=== PATIENT | female | born 1940 | race African-American/Black ===

== ENCOUNTER 2024-11-03 13:47 | Inpatient (IN) | payer OTHER ==
[~2024-11-03] VITALS: Ht 165.1 cm; Wt 49.9 kg
[2024-11-03 15:11] LABS: BASOPHILS % 0.4 % (0.0-2.0); EOSINOPHILS % 0.1 % (0.0-5.0); HEMATOCRIT. 30.9 % (36.0-48.0); HEMOGLOBIN. 9.9 g/dL (12.0-16.0); LYMPHOCYTES % 6.8 % (20.0-50.0); MEAN CORPUSCULAR HEMOGLOBIN 26.3 pg (28.0-32.0); MEAN CORPUSCULAR HGB CONC 32.1 g/dL (31.0-37.0); MEAN PLATELET VOLUME 7.9 fl (7.4-10.4); MONOCYTES % 11.1 % (2.0-8.0); NEUTROPHILS % 81.6 % (40.0-76.0); PLATELET 264 x1000/uL (130-400); RED BLOOD CELL COUNT 3.77 mill/uL (4.2-5.4); WHITE BLOOD COUNT 10.1 x1000/uL (4.5-11.0)
[2024-11-03 15:18] LABS: CHLORIDE 107 mEq/L (98-107); POTASSIUM 4.2 mEq/L (3.5-5.1); SODIUM 142 mEq/L (136-145)
[2024-11-03 15:19] LABS: CALCIUM 9.8 mg/dL (8.7-10.4); CARBON DIOXIDE 26 mEq/L (21-32)
[2024-11-03 15:21] LABS: DIFFERENTIAL COMMENT 1
[2024-11-03 15:23] LABS: PROTHROMBIN TIME 11.3 sec (9.6-11.0)
[2024-11-03 15:24] LABS: CREATININE 0.7 mg/dL (0.6-1.0); GLUCOSE 74 mg/dL (70-105); UREA NITROGEN BLOOD 33 mg/dL (9-23)
[2024-11-03 15:25] LABS: TROPONIN I HIGH SENSITIVITY 28 ng/L (3.0-34)
[2024-11-03] MEDS ORDERED: DOCUSATE SODIUM 100MG CAPSULE PO PRN (19:00)
[2024-11-03] MEDS ORDERED: ONDANSETRON HCL 4MG/2ML INJ IV PRN (19:00)
[2024-11-03] MEDS ORDERED: MAGNESIUM/ALUMINUM HYDROXIDE/SIMETHICONE 30ML UDC PO PRN (19:00)
[2024-11-03] MEDS ORDERED: NITROGLYCERIN 0.4MG TABLET SL SL PRN (19:00)
[2024-11-03] MEDS ORDERED: IPRATROPIUM/ALBUTEROL 0.5-3(2.5)MG/3ML NEB NEB PRN (19:00)
[2024-11-03] MEDS ORDERED: DEXTROSE 50% WATER 50ML SYRINGE IV PRN (19:00)
[2024-11-03] MEDS ORDERED: KETOROLAC 15MG/ML VIAL IV PRN (19:00)
[2024-11-03] MEDS ORDERED: ACETAMINOPHEN 325MG TABLET PO PRN ×2 (19:00)
[2024-11-03 20:07] LABS: IRON 25 ug/dL (50-170)
[2024-11-03 20:08] LABS: TRIGLYCERIDE 70 mg/dL (0-150)
[2024-11-03 20:09] LABS: LDL CHOLESTEROL 60 mg/dL (5-100)
[2024-11-03 20:10] LABS: ALANINE AMINOTRANSFERASE 12 IU/L (10-49); ALBUMIN 3.9 g/dL (3.2-4.8); ASPARTATE AMINOTRANSFERASE 20 IU/L (<34); BILIRUBIN DIRECT 0.2 mg/dL (<=3.0); BILIRUBIN TOTAL 0.6 mg/dL (0.1-1.0); CHOLESTEROL 122 mg/dL (<200); HDL CHOLESTEROL 45 mg/dL (>65); PROTEIN TOTAL 7.3 g/dL (6.0-8.3); TOTAL IRON BINDING CAPACITY 170 ug/dl (250-425)
[2024-11-03 20:12] LABS: T4 FREE 7.68 ng/dL (0.89-1.76); THYROID STIMULATING HORMONE < 0.10 uIU/mL (0.55-4.78)
[2024-11-03 20:13] LABS: FOLIC ACID (FOLATE) SERUM 9.32 ng/mL (>5.38); VITAMIN B12 SERUM 723 pg/mL (211-911)
[2024-11-03 20:40] VITALS: BP 162/55; PULSE 115; RESP 24; TEMP 36.72516; TEMP 36.7516; O2SAT 98
[2024-11-03] MEDS: BLOOD SUGAR DIAGNOSTIC STRIP TEST SCH (21:00)
[2024-11-03] MEDS ORDERED: ZOLPIDEM TARTRATE 5MG TABLET PO PRN (21:00)
[2024-11-03] MEDS: INSULIN LISPRO 100 UNITS/ML SUBCUT SCH (21:00)
[2024-11-03] MEDS: NITROGLYCERIN OINT 1GM/INCH UDPKT TD SCH (22:31)
[2024-11-03] MEDS: SPIRONOLACTONE 25MG TABLET PO SCH (22:31)
[2024-11-03] MEDS: LOSARTAN 50 MG TABLET PO SCH (22:31)
[2024-11-03] MEDS: FAMOTIDINE 20MG TABLET PO SCH (22:31)
[2024-11-03] MEDS: ENOXAPARIN 40MG/0.4ML SYR SUBCUT SCH (22:33)
[2024-11-03] MEDS: METHIMAZOLE 5MG TABLET PO SCH (22:36)
[2024-11-03 22:41] LABS: CREATINE KINASE MB FRACTION 3.1 ng/mL (0.5-3.6)
[2024-11-04] VITALS: BP 147/55; PULSE 107; RESP 22; TEMP 36.61404; O2SAT 99
[2024-11-04] MEDS: FUROSEMIDE 40MG/4ML VIAL IVP SCH (00:02)
[2024-11-04] MEDS: PROPRANOLOL HCL 10MG TABLET PO SCH (00:02)
[2024-11-04 01:32] LABS: CLARITY URINE CLEAR (CLEAR); COLOR URINE YELLOW (YELLOW); GLUCOSE URINE NEGATIVE (NEGATIVE); KETONES URINE TRACE (NEGATIVE); LEUKOCYTE ESTERASE URINE NEGATIVE (NEGATIVE); NITRITE URINE NEGATIVE (NEGATIVE); OCCULT BLOOD URINE NEGATIVE (NEGATIVE); PROTEIN URINE TRACE (NEGATIVE); SPECIFIC GRAVITY URINE 1.014 (1.005-1.030); UROBILINOGEN URINE 0.2 E.U./dL (0.2-1.0)
[2024-11-04 01:42] LABS: *AMPHETAMINES SCREEN URINE NEGATIVE (NEGATIVE); *BARBITURATES SCREEN URINE NEGATIVE (NEGATIVE); *BENZODIAZEPINES SCREEN URINE NEGATIVE (NEGATIVE)
[2024-11-04 01:43] LABS: *COCAINE SCREEN URINE NEGATIVE (NEGATIVE); CANNABINOID URINE SCREEN NEGATIVE (NEGATIVE); ECSTASY MDMA SCREEN URINE NEGATIVE (NEGATIVE); METHADONE URINE SCREEN NEGATIVE (NEGATIVE); OPIATES URINE SCREEN NEGATIVE (NEGATIVE); PHENCYCLIDINE URINE SCREEN NEGATIVE (NEGATIVE)
[2024-11-04 03:08] LABS: SQUAMOUS EPITHELIAL CELL URINE 1+ /lpf (RARE/1+)
[2024-11-04 03:14] LABS: YEAST URINE 1+
[2024-11-04 03:15] LABS: BACTERIA URINE TRACE; RBC URINE 0-2 /hpf (0-2); WBC URINE 0-2 /hpf (0-2)
[2024-11-04 04:21] VITALS: BP 154/64; PULSE 98; RESP 21; TEMP 36.55848; O2SAT 98
[2024-11-04 08:00] VITALS: BP 157/61; PULSE 105; RESP 29; TEMP 36.72516; O2SAT 96
[2024-11-04 08:08] LABS: CARBON DIOXIDE 26 mEq/L (21-32); CHLORIDE 103 mEq/L (98-107); POTASSIUM 4.5 mEq/L (3.5-5.1); SODIUM 139 mEq/L (136-145)
[2024-11-04 08:13] LABS: CREATININE 0.8 mg/dL (0.6-1.0); GLUCOSE 141 mg/dL (70-105)
[2024-11-04 08:14] LABS: UREA NITROGEN BLOOD 29 mg/dL (9-23)
[2024-11-04 08:15] LABS: ALANINE AMINOTRANSFERASE 15 IU/L (10-49); ALBUMIN 3.7 g/dL (3.2-4.8); ASPARTATE AMINOTRANSFERASE 25 IU/L (<34); CREATINE KINASE MB FRACTION 2.9 ng/mL (0.5-3.6)
[2024-11-04 08:16] LABS: BILIRUBIN TOTAL 0.9 mg/dL (0.1-1.0); PHOSPHORUS 3.4 mg/dL (2.5-4.9); PROTEIN TOTAL 6.9 g/dL (6.0-8.3)
[2024-11-04] MEDS: ASPIRIN 81MG EC TABLET PO SCH (08:55)
[2024-11-04 09:01] LABS: BASOPHILS % 0.7 % (0.0-2.0); EOSINOPHILS % 0.4 % (0.0-5.0); HEMATOCRIT. 30.5 % (36.0-48.0); HEMOGLOBIN. 9.7 g/dL (12.0-16.0); LYMPHOCYTES % 16.6 % (20.0-50.0); MEAN CORPUSCULAR HEMOGLOBIN 26.2 pg (28.0-32.0); MEAN CORPUSCULAR VOLUME 81.9 fL (81.0-99.0); MEAN PLATELET VOLUME 8.2 fl (7.4-10.4); MONOCYTES % 12.4 % (2.0-8.0); NEUTROPHILS % 69.9 % (40.0-76.0); PLATELET 256 x1000/uL (130-400); RED BLOOD CELL COUNT 3.72 mill/uL (4.2-5.4); RED CELL DISTRIBUTION WIDTH 13.9 % (11.6-14.6); WHITE BLOOD COUNT 8.8 x1000/uL (4.5-11.0)
[2024-11-04 12:00] VITALS: BP 145/60; PULSE 96; RESP 24; TEMP 36.83628; O2SAT 96
[2024-11-04 16:00] VITALS: BP 132/81; PULSE 99; RESP 24; TEMP 36.50292; O2SAT 99
[2024-11-04 20:05] VITALS: BP 163/81; PULSE 117; RESP 22; TEMP 36.22512; O2SAT 97
[2024-11-05 00:05] VITALS: BP 122/48; PULSE 103; RESP 28; TEMP 36.33624; O2SAT 100
[2024-11-05 04:05] VITALS: BP 130/47; PULSE 100; RESP 23; TEMP 36.3918; O2SAT 100
[2024-11-05 08:00] VITALS: BP 131/49; PULSE 93; RESP 21; TEMP 36.61404; O2SAT 100
[2024-11-05 12:00] VITALS: BP 145/48; PULSE 93; RESP 25; TEMP 36.6696; O2SAT 100
[2024-11-05 16:00] VITALS: BP 124/42; PULSE 89; RESP 22; TEMP 36.72516; O2SAT 97
[2024-11-05 20:00] VITALS: BP 120/46; PULSE 81; RESP 22; TEMP 36.50292; O2SAT 98
[2024-11-06] VITALS: BP 119/51; PULSE 78; RESP 20; TEMP 36.44736; O2SAT 97
[2024-11-06 04:00] VITALS: BP 149/49; PULSE 86; RESP 20; TEMP 36.33624
[2024-11-06 08:00] VITALS: BP 125/53; PULSE 81; RESP 21; TEMP 36.44736; O2SAT 100
[2024-11-06 12:00] VITALS: BP 160/54; PULSE 19; RESP 19; TEMP 36.28068; O2SAT 91
[2024-11-06 16:00] VITALS: BP 149/61; PULSE 16; RESP 16; O2SAT 99
[2024-11-06 20:00] VITALS: BP 149/81; PULSE 18; RESP 16; TEMP 36.55848; O2SAT 99
[2024-11-07] VITALS (7 sets, daily range): BP systolic 112–181; BP diastolic 46–61; PULSE 73–88; RESP 17–21; TEMP 36.22512–36.6696; O2SAT 93–100
[2024-11-07] MEDS: FAMOTIDINE 20MG TABLET PO SCH (09:30)
[2024-11-07] MEDS: LACTATED RINGERS 1,000 ML IV SCH (18:41)
[2024-11-07] MEDS: MIRTAZAPINE 15MG TABLET PO SCH (20:12)
[2024-11-07] MEDS: GUAIFENESIN 200MG/10ML SUGAR FREE UDC PO PRN (22:25)
[2024-11-08] VITALS: BP 137/45; PULSE 92; RESP 20; TEMP 36.61404; O2SAT 97
[2024-11-08 04:00] VITALS: BP 137/56; RESP 20; TEMP 36.6696; O2SAT 97
[2024-11-08 08:00] VITALS: BP 163/52; PULSE 89; RESP 18; TEMP 36.83628; O2SAT 98
[2024-11-08 09:43] LABS: POTASSIUM 4.8 mEq/L (3.5-5.1)
[2024-11-08 09:44] LABS: CALCIUM 9.9 mg/dL (8.7-10.4)
[2024-11-08 09:48] LABS: HEMATOCRIT. 33.4 % (36.0-48.0); HEMOGLOBIN. 10.7 g/dL (12.0-16.0); MEAN CORPUSCULAR HEMOGLOBIN 26.3 pg (28.0-32.0); MEAN CORPUSCULAR HGB CONC 31.9 g/dL (31.0-37.0); MEAN CORPUSCULAR VOLUME 82.3 fL (81.0-99.0); PLATELET 269 x1000/uL (130-400); RED BLOOD CELL COUNT 4.06 mill/uL (4.2-5.4); RED CELL DISTRIBUTION WIDTH 13.8 % (11.6-14.6); WHITE BLOOD COUNT 6.5 x1000/uL (4.5-11.0)
[2024-11-08 09:49] LABS: CREATININE 1.3 mg/dL (0.6-1.0)
[2024-11-08 09:55] LABS: DIFFERENTIAL COMMENT 1
[2024-11-08 12:00] VITALS: BP 164/61; PULSE 85; RESP 18; TEMP 36.6696; O2SAT 97
[2024-11-08 16:00] VITALS: BP 165/64; PULSE 89; RESP 20; TEMP 36.6696; O2SAT 98
[2024-11-08 16:17] LABS: PLATELET ESTIMATE NORMAL
[2024-11-08 20:00] VITALS: BP 169/48; PULSE 122; RESP 18; TEMP 36.61404; O2SAT 100
[2024-11-09] VITALS: BP 136/42; PULSE 104; RESP 17; TEMP 36.61404; O2SAT 98
[2024-11-09 04:00] VITALS: BP 147/45; PULSE 106; RESP 18; TEMP 36.6696; O2SAT 97
[2024-11-09 08:00] VITALS: BP 152/46; PULSE 105; RESP 20; TEMP 37.00296; O2SAT 99
[2024-11-09 12:00] VITALS: BP 147/48; PULSE 103; RESP 20; TEMP 36.6696; O2SAT 100
[2024-11-09 16:00] VITALS: BP 145/57; PULSE 95; RESP 20; TEMP 36.6696; O2SAT 100
[2024-11-09 20:05] VITALS: BP 155/92; PULSE 81; RESP 13; TEMP 36.33624; O2SAT 100
[2024-11-10 00:05] VITALS: BP 154/60; PULSE 103; RESP 28; TEMP 36.16956; O2SAT 100
[2024-11-10 04:05] VITALS: BP 170/72; PULSE 103; RESP 19; TEMP 36.16956; O2SAT 99
[2024-11-10 08:00] VITALS: BP 174/67; PULSE 107; RESP 21; TEMP 36.22512; O2SAT 92
[2024-11-10] MEDS: LORAZEPAM 2MG/ML INJ IV SCH (11:19)
[2024-11-10 12:00] VITALS: BP 159/52; PULSE 102; RESP 23; TEMP 36.28068; O2SAT 95
[2024-11-10 16:00] VITALS: BP 135/59; PULSE 117; RESP 20; TEMP 36.33624; O2SAT 98
[2024-11-10 20:00] VITALS: BP 127/54; PULSE 118; RESP 28; TEMP 36.78072; O2SAT 95
[2024-11-11] VITALS: BP 140/62; PULSE 123; RESP 20; TEMP 36.44736; O2SAT 96
[2024-11-11 04:00] VITALS: BP 121/52; PULSE 127; RESP 33; TEMP 36.22512; O2SAT 95
[2024-11-11 08:00] VITALS: BP 137/52; PULSE 120; RESP 25; TEMP 36.16956; O2SAT 99
[2024-11-11 12:00] VITALS: BP 135/52; PULSE 122; RESP 34; TEMP 36.16956; O2SAT 96
[2024-11-11 16:00] VITALS: BP 145/52; PULSE 124; RESP 22; TEMP 36.6696; O2SAT 94
[2024-11-11 20:00] VITALS: BP 157/71; PULSE 129; RESP 22; TEMP 36.83628; O2SAT 98
[2024-11-12] VITALS (7 sets, daily range): BP systolic 114–161; BP diastolic 44–67; PULSE 98–114; RESP 20–26; TEMP 35.72508–36.78072; O2SAT 96–100
[2024-11-13] VITALS (7 sets, daily range): BP systolic 127–155; BP diastolic 40–102; PULSE 113–143; RESP 21–32; TEMP 36.114–36.55848; O2SAT 87–99
[2024-11-13] MEDS: ACETYLCYSTEINE 200MG/ML 20% VIAL 4ML INH SCH (08:51)
[2024-11-13] MEDS: HEMORRHOIDAL SUPP PR PRN (16:39)
[2024-11-13] MEDS: CLONIDINE 0.1MG TABLET PO PRN (17:45)
[2024-11-13] MEDS: DIGOXIN 500MCG/2ML AMP IV NR (19:04)
[2024-11-13 19:11] LABS: BG BASE EXCESS 4.9 mmol/L (-2.0-3.0); BG CARBOXYHEMOGLOBIN 0.3 % (0.5-1.5); BG FRACTION INSPIRED OXYGEN 36; BG HCO3 ACT 28.9 mmol/L (21.0-28.0); BG METHEMOGLOBIN 0.3 % (0.5-1.5); BG OXYHEMOGLOBIN 96.4 % (94.0-98.0); BG PCO2 40.4 mmHg (32.0-45.0); BG PH 7.472 (7.350-7.450); BG PO2 84.2 mmHg (83.0-108.0); BG SAMPLE SITE RIGHT RADIAL; BG TOTAL HEMOGLOBIN 11.3 g/dL (12.0-16.0); BG VENT MODE NASAL CANNULA
[2024-11-13] MEDS ORDERED: DILTIAZEM HCL 125 MG in DEXT 5% WATER 100 ML IV PRN (19:15)
[2024-11-13] MEDS: DEXT 5% IV PRN (20:34)
[2024-11-13] MEDS: DILTIAZEM IV PRN (20:34)
[2024-11-13] MEDS: WATER IV PRN (20:34)
[2024-11-14] VITALS (16 sets, daily range): BP systolic 114–151; BP diastolic 39–84; PULSE 68–128; RESP 21–35; TEMP 36.114–37.11408; O2SAT 92–100
[2024-11-14 01:30] LABS: BASOPHILS % 0.3 % (0.0-2.0); HEMATOCRIT. 31.5 % (36.0-48.0); HEMOGLOBIN. 10.1 g/dL (12.0-16.0); LYMPHOCYTES % 10.1 % (20.0-50.0); MEAN CORPUSCULAR HEMOGLOBIN 26.7 pg (28.0-32.0); MEAN CORPUSCULAR HGB CONC 32.1 g/dL (31.0-37.0); MEAN CORPUSCULAR VOLUME 83.1 fL (81.0-99.0); NEUTROPHILS % 78.6 % (40.0-76.0); PLATELET 323 x1000/uL (130-400); RED BLOOD CELL COUNT 3.79 mill/uL (4.2-5.4); RED CELL DISTRIBUTION WIDTH 13.8 % (11.6-14.6); WHITE BLOOD COUNT 17.6 x1000/uL (4.5-11.0)
[2024-11-14 01:46] LABS: CALCIUM 10.5 mg/dL (8.7-10.4); CARBON DIOXIDE 28 mEq/L (21-32); CHLORIDE 106 mEq/L (98-107); POTASSIUM 5.2 mEq/L (3.5-5.1); SODIUM 144 mEq/L (136-145)
[2024-11-14 01:52] LABS: CREATININE 1.5 mg/dL (0.6-1.0); GLUCOSE 153 mg/dL (70-105); UREA NITROGEN BLOOD 79 mg/dL (9-23)
[2024-11-14 01:53] LABS: ALANINE AMINOTRANSFERASE 21 IU/L (10-49); ALBUMIN 3.5 g/dL (3.2-4.8); ASPARTATE AMINOTRANSFERASE 25 IU/L (<34)
[2024-11-14 01:54] LABS: BILIRUBIN TOTAL 0.4 mg/dL (0.1-1.0)
[2024-11-14] MEDS ORDERED: METHIMAZOLE 5MG TABLET NG SCH (05:22)
[2024-11-14] MEDS: METHIMAZOLE 10MG TABLET NG SCH (06:25)
[2024-11-14] MEDS ORDERED: ACETAMINOPHEN 650MG/20.3ML UDC PO PRN (08:00)
[2024-11-14] MEDS ORDERED: DOCUSATE SODIUM SUGAR FREE 100MG/10ML UDC GT PRN (08:00)
[2024-11-14] MEDS ORDERED: ACETAMINOPHEN 650MG/20.3ML UDC GT PRN (08:00)
[2024-11-14] MEDS: IPRATROPIUM BROMIDE (0.02%) 0.5MG/2.5ML NEB HHN SCH (08:50)
[2024-11-14] MEDS: ASPIRIN 81MG TABLET GT SCH (08:53)
[2024-11-14] MEDS: SPIRONOLACTONE 25 MG/5 ML ORAL.SUSP NG SCH (09:08)
[2024-11-14] MEDS: SODIUM ZIRCONIUM CYCLOSILICATE 10GM/PACKET PO NR (15:23)
[2024-11-14] MEDS: PIPERACILLIN/TAZO 3.375G/50ML 50 ML IV SCH (15:42)
[2024-11-14] MEDS: VANCOMYCIN 1GM/200ML PMX (BAXTER) IV NR (17:32)
[2024-11-14 18:52] LABS: CLARITY URINE CLEAR (CLEAR); COLOR URINE YELLOW (YELLOW); GLUCOSE URINE NEGATIVE (NEGATIVE); KETONES URINE NEGATIVE (NEGATIVE); LEUKOCYTE ESTERASE URINE NEGATIVE (NEGATIVE); NITRITE URINE NEGATIVE (NEGATIVE); OCCULT BLOOD URINE NEGATIVE (NEGATIVE); PROTEIN URINE NEGATIVE (NEGATIVE); SPECIFIC GRAVITY URINE 1.014 (1.005-1.030); UROBILINOGEN URINE 0.2 E.U./dL (0.2-1.0)
[2024-11-15] VITALS (41 sets, daily range): BP systolic 55–148; BP diastolic 28–71; PULSE 0–136; RESP 0–48; TEMP 36.33624–39.39204; O2SAT 52–100
[2024-11-15] MEDS: ACETAMINOPHEN 650MG/20.3ML UDC GT PRN (04:05)
[2024-11-15 12:38] LABS: BG BASE EXCESS -12.6 mmol/L (-2.0-3.0); BG CARBOXYHEMOGLOBIN 0.3 % (0.5-1.5); BG DEOXYHEMOGLOBIN 10.2 % (0.0-5.0); BG FRACTION INSPIRED OXYGEN 36; BG HCO3 ACT 15.9 mmol/L (21.0-28.0); BG METHEMOGLOBIN 0.3 % (0.5-1.5); BG OXYGEN SATURATION 89.7 % (94.0-98.0); BG OXYHEMOGLOBIN 89.2 % (94.0-98.0); BG PCO2 46.5 mmHg (32.0-45.0); BG PH 7.152 (7.350-7.450); BG PO2 71.7 mmHg (83.0-108.0); BG SAMPLE SITE LEFT RADIAL; BG TOTAL HEMOGLOBIN 12.7 g/dL (12.0-16.0); BG VENT MODE NASAL CANNULA
[2024-11-15] MEDS: DOPAMINE 800MG PREMIX (DOUBLE) 250 ML IV PRN (14:06)
[2024-11-15] MEDS: SODIUM BICARBONATE 100 MEQ in SODIUM CHLORIDE 0.45% 900 ML IV SCH (14:06)
[2024-11-15] MEDS: SODIUM BICARBONATE 8.4% 50MEQ/50ML SYR IV NR (14:09)
[2024-11-15] MEDS: ATROPINE SULFATE 1MG/10ML SYR ONE (14:09)
[2024-11-15] MEDS ORDERED: NOREPINEPHRINE 8MG/250ML PMX 250 ML IV PRN (15:30)
[2024-11-15] MEDS: PHENYLEPHRINE 100 MG in DEXT 5% WATER 240 ML IV PRN (16:36)
[2024-11-15] MEDS: VASOPRESSIN 20 UNIT in SODIUM CHLORIDE 0.9% 99 ML IV PRN (16:37)
[2024-11-15] MEDS: NOREPINEPHRINE 32 MG in DEXT 5% WATER 218 ML IV PRN (16:39)
[2024-11-15] MEDS: SODIUM CHLORIDE 0.9% (SEPSIS BOLUS) IV NR (16:45)
[2024-11-15] MEDS ORDERED: VANCOMYCIN 500MG/100ML IV SCH (17:00)
[2024-11-15] MEDS: EPINEPHRINE 10 MG in SODIUM CHLORIDE 0.9% 240 ML IV PRN (17:23)
[2024-11-15] MEDS ORDERED: FUROSEMIDE 20MG/2ML VIAL IVP SCH (18:00)
[2024-11-15 18:25] LABS: BG BASE EXCESS -14.9 mmol/L (-2.0-3.0); BG CARBOXYHEMOGLOBIN 0.1 % (0.5-1.5); BG DEOXYHEMOGLOBIN 43.4 % (0.0-5.0); BG FRACTION INSPIRED OXYGEN 60; BG HCO3 ACT 20.9 mmol/L (21.0-28.0); BG METHEMOGLOBIN 0.3 % (0.5-1.5); BG OXYGEN SATURATION 56.4 % (94.0-98.0); BG OXYHEMOGLOBIN 56.2 % (94.0-98.0); BG PCO2 136.7 mmHg (32.0-45.0); BG PH 6.802 (7.350-7.450); BG PO2 46.4 mmHg (83.0-108.0); BG TOTAL HEMOGLOBIN 10.5 g/dL (12.0-16.0); BG VENT MODE MASK - BIPAP
[2024-11-15] MEDS ORDERED: HYDROCORTISONE SOD SUCCINATE 100 MG/2 ML VIAL IV SCH (22:00)
== END 2024-11-15 18:00 | DRG 645 ==
LOC: ER 13:47 → 3WST 15:34 → EDBEDREQTM 16:00 → EDBEDREQ 16:00 → 3WST 11-09 10:56 → 5EST 11-13 20:13 → MICUSO 11-15 15:32
PROVIDERS: ADMIT Internal Medicine; ATTEND Internal Medicine
PROC: 02HV33Z Insertion of Infusion Device into Superior Vena Cava, Percutaneous Approach (ICD-10-PCS; principal; 2024-11-15)
PROC: B548ZZA Ultrasonography of Superior Vena Cava, Guidance (ICD-10-PCS; 2024-11-15)
DX: E05.90 Thyrotoxicosis, unspecified without thyrotoxic crisis or storm (principal); E11.9 Type 2 diabetes mellitus without complications; I10 Essential (primary) hypertension; Z66 Do not resuscitate; I50.9 Heart failure, unspecified; I11.0 Hypertensive heart disease with heart failure; D72.829 Elevated white blood cell count, unspecified; Z86.73 Personal history of transient ischemic attack (TIA), and cerebral infarction without residual deficits; Z79.4 Long term (current) use of insulin
CPT/HCPCS: 36415; 36600; 70551; 71045; 73521; 74018; 76770; 80048; 80053; 80061; 80076; 80305; 81003; 82375; 82550; 82553; 82607; 82746; 82805; 82962; 83036; 83540; 83550; 83605; 83735; 83880; 84100; 84145; 84439; 84443; 84484; 85025; 85379; 93005; 93306; 93970; 94070; 94640; 94660; 97162; 97166; 97530; 99285; A4606; A4663; A6261; C1893; J0461; J1160; J1650; J1815; J1940; J2060; J2543; J3370; J3490; J7050; J7060; J7120; J7608